=== PATIENT | female | born 1985 | race Two or more races ===

== ENCOUNTER 2022-03-07 09:55 | Outpatient (CLI) | payer OTHER ==
[~2022-03-07] VITALS: Ht 162.6 cm; Wt 72.7 kg
[~2022-03-07 09:55] MED LIST: ALBUTEROL SULFATE 2.5 MG/0.5 ML INH NEB SOLN INH PRN; EPINEPHrine INJ 1 MG/ML 1ML AMP IM PRN; diphenhydrAMINE 50MG/ML VIAL (J1200) IV PRN; methylPREDNISolone 125MG 2ML VIAL IV PRN
[2022-03-07] MEDS ORDERED: IRON SUCROSE 200 MG in NS 100 ML OVER 1 HR IV ONE (10:00)
[2022-03-07] MEDS ORDERED: ACETAMINOPHEN TAB 650MG DOSE (2X325MG) PO ONE (10:00)
[2022-03-07] MEDS ORDERED: NS 1,000 ML IV SCH (10:00)
[2022-03-07 10:09] VITALS: BP 121/56
[2022-03-07 11:42] VITALS: BP 124/56
== END 2022-03-07 12:15 | disposition home or self-care (01) ==
LOC: M INFU 09:55 → EDUNIT# 10:00 → M INFU 12:15
PROVIDERS: ATTEND Nurse Practitioner Primary Care
DX: D50.8 Other iron deficiency anemias (principal)
CPT/HCPCS: 96365; J1756

== ENCOUNTER 2022-03-13 10:07 | Outpatient (CLI) | payer OTHER ==
[~2022-03-13] VITALS: Ht 162.6 cm; Wt 72.7 kg
[2022-03-13 10:28] VITALS: BP 117/60
[2022-03-13] MEDS ORDERED: NS 1,000 ML IV SCH (10:30)
[2022-03-13] MEDS ORDERED: ACETAMINOPHEN TAB 650MG DOSE (2X325MG) PO ONE (10:30)
[2022-03-13] MEDS ORDERED: IRON SUCROSE 200 MG in NS 100 ML OVER 1 HR IV ONE (10:30)
[2022-03-13 11:30] VITALS: BP 118/62
== END 2022-03-13 11:30 | disposition home or self-care (01) ==
LOC: M INFU 10:07 → EDUNIT# 10:30 → M INFU 11:30
PROVIDERS: ATTEND Nurse Practitioner Primary Care
DX: D50.8 Other iron deficiency anemias (principal)
CPT/HCPCS: 96365; J1756

== ENCOUNTER 2022-03-20 10:34 | Outpatient (CLI) | payer OTHER ==
[~2022-03-20 10:34] MED LIST changes: +ACETAMINOPHEN TAB 650MG DOSE (2X325MG) PO ONE; +IRON SUCROSE 200 MG in NS 100 ML OVER 1 HR IV ONE; +NS 1,000 ML IV SCH
[2022-03-20 11:45] VITALS: BP 117/65
[2022-03-20 12:20] VITALS: BP 122/65
== END 2022-03-20 12:30 | disposition home or self-care (01) ==
LOC: M INFU 10:34
PROVIDERS: ATTEND Nurse Practitioner Primary Care
DX: D50.8 Other iron deficiency anemias (principal)
CPT/HCPCS: 96365; J1756

== ENCOUNTER 2022-03-27 09:21 | Outpatient (CLI) | payer OTHER ==
[~2022-03-27 09:21] MED LIST changes: -ACETAMINOPHEN TAB 650MG DOSE (2X325MG) PO ONE; -IRON SUCROSE 200 MG in NS 100 ML OVER 1 HR IV ONE; -NS 1,000 ML IV SCH
[2022-03-27 09:35] VITALS: BP 114/67
[2022-03-27] MEDS ORDERED: ACETAMINOPHEN TAB 650MG DOSE (2X325MG) PO ONE (10:00)
[2022-03-27] MEDS ORDERED: NS 1,000 ML IV SCH (10:00)
[2022-03-27] MEDS ORDERED: IRON SUCROSE 200 MG in NS 100 ML OVER 1 HR IV ONE (10:00)
[2022-03-27 11:50] VITALS: BP 118/57
== END 2022-03-27 11:50 | disposition home or self-care (01) ==
LOC: M INFU 09:21 → EDUNIT# 10:00 → M INFU 11:50
PROVIDERS: ATTEND Nurse Practitioner Primary Care
DX: D50.8 Other iron deficiency anemias (principal)
CPT/HCPCS: 96365; J1756

== ENCOUNTER 2022-04-03 10:07 | Outpatient (CLI) | payer OTHER ==
[~2022-04-03] VITALS: Ht 162.6 cm; Wt 74.0 kg
[~2022-04-03 10:07] MED LIST changes: +ACETAMINOPHEN TAB 650MG DOSE (2X325MG) PO ONE; +IRON SUCROSE 200 MG in NS 100 ML OVER 1 HR IV ONE; +NS 1,000 ML IV SCH
[2022-04-03 10:15] VITALS: BP 125/75
[2022-04-03 11:30] VITALS: BP 123/60
== END 2022-04-03 11:30 | disposition home or self-care (01) ==
LOC: M INFU 10:07
PROVIDERS: ATTEND Nurse Practitioner Primary Care
DX: D50.8 Other iron deficiency anemias (principal)
CPT/HCPCS: 96365; J1756

== ENCOUNTER 2023-03-06 12:00 | Outpatient (CLI) | payer OTHER ==
[2023-03-06 12:23] VITALS: BP 117/54
[2023-03-06] MEDS ORDERED: NS 1,000 ML IV SCH (12:30)
[2023-03-06] MEDS ORDERED: ALBUTEROL SULFATE 2.5MG/0.5ML INH NEB SOLN INH PRN (12:30)
[2023-03-06] MEDS ORDERED: methylPREDNISolone 125MG 2ML VIAL IV PRN (12:30)
[2023-03-06] MEDS ORDERED: diphenhydrAMINE 50MG/ML VIAL IV PRN (12:30)
[2023-03-06] MEDS ORDERED: EPINEPHrine INJ 1 MG/ML 1ML AMP IM PRN (12:30)
[2023-03-06] MEDS ORDERED: ACETAMINOPHEN TAB 650MG DOSE (2X325MG) PO ONE (12:30)
[2023-03-06] MEDS ORDERED: IRON SUCROSE 200 MG in NS 100 ML OVER 1 HR IV ONE (12:30)
[2023-03-06 13:10] VITALS: BP 117/58
== END 2023-03-06 13:15 | disposition home or self-care (01) ==
LOC: M INFU 12:00
PROVIDERS: ATTEND Nurse Practitioner Primary Care
DX: D50.8 Other iron deficiency anemias (principal)
CPT/HCPCS: 96365; J1756

== ENCOUNTER 2023-03-20 12:10 | Outpatient (CLI) | payer OTHER ==
[~2023-03-20] VITALS: Ht 160 cm; Wt 75.0 kg
[2023-03-20 12:10] VITALS: BP 119/75
[~2023-03-20 12:10] MED LIST changes: -ALBUTEROL SULFATE 2.5 MG/0.5 ML INH NEB SOLN INH PRN; +ALBUTEROL SULFATE 2.5MG/0.5ML INH NEB SOLN INH PRN; -diphenhydrAMINE 50MG/ML VIAL (J1200) IV PRN; +diphenhydrAMINE 50MG/ML VIAL IV PRN
[2023-03-20 14:30] VITALS: BP 115/55
== END 2023-03-20 14:35 | disposition home or self-care (01) ==
LOC: M INFU 12:10
PROVIDERS: ATTEND Nurse Practitioner Primary Care
DX: D50.8 Other iron deficiency anemias (principal)
CPT/HCPCS: 96365; J1756

== ENCOUNTER 2023-03-27 12:30 | Outpatient (CLI) | payer OTHER ==
[~2023-03-27] VITALS: Ht 160 cm; Wt 78.0 kg
[2023-03-27 12:30] VITALS: BP 113/56
[2023-03-27 13:35] VITALS: BP 107/58
== END 2023-03-27 13:40 ==
LOC: M INFU 12:30
PROVIDERS: ATTEND Nurse Practitioner Primary Care
DX: D50.8 Other iron deficiency anemias (principal)
CPT/HCPCS: 96365; J1756

== ENCOUNTER 2023-04-03 12:10 | Outpatient (CLI) | payer OTHER ==
[~2023-04-03] VITALS: Ht 160 cm; Wt 78.0 kg
[~2023-04-03 12:10] MED LIST changes: -ACETAMINOPHEN TAB 650MG DOSE (2X325MG) PO ONE; -IRON SUCROSE 200 MG in NS 100 ML OVER 1 HR IV ONE; -NS 1,000 ML IV SCH
[2023-04-03 12:15] VITALS: BP 124/59
[2023-04-03] MEDS ORDERED: ACETAMINOPHEN TAB 650MG DOSE (2X325MG) PO ONE (12:30)
[2023-04-03] MEDS ORDERED: NS 1,000 ML IV SCH (12:30)
[2023-04-03] MEDS ORDERED: IRON SUCROSE 200 MG in NS 100 ML OVER 1 HR IV ONE (12:30)
[2023-04-03 14:05] VITALS: BP 121/55
== END 2023-04-03 14:05 | disposition home or self-care (01) ==
LOC: M INFU 12:10
PROVIDERS: ATTEND Nurse Practitioner Primary Care
DX: D50.8 Other iron deficiency anemias (principal)
CPT/HCPCS: 96365; J1756

== ENCOUNTER → 2023-12-03 | Outpatient (CLI) | payer OTHER ==
[~2023-12-03] VITALS: Ht 160 cm; Wt 81.0 kg
[~2023-12-03] MED LIST changes: +ACETAMINOPHEN TAB 650MG DOSE (2X325MG) PO ONE; +FERRIC CARBOXYMALTOSE INJ 750 MG in NS 250 ML (>50kg) IV ONE; +NS 1,000 ML IV SCH; +diphenhydrAMINE 25MG CAP PO ONE
[2023-12-03 09:50] VITALS: BP 141/66; O2SAT 99
[2023-12-03 11:47] VITALS: BP 117/70; O2SAT 100
== END ==
LOC: M INFU 09:44
PROVIDERS: ATTEND Family Medicine
DX: D50.9 Iron deficiency anemia, unspecified (principal)
CPT/HCPCS: 96365; 96366; J1439

== ENCOUNTER 2023-12-15 08:10 | Outpatient (CLI) | payer OTHER ==
[~2023-12-15] VITALS: Ht 160 cm; Wt 81.0 kg
[~2023-12-15 08:10] MED LIST changes: -ACETAMINOPHEN TAB 650MG DOSE (2X325MG) PO ONE; -FERRIC CARBOXYMALTOSE INJ 750 MG in NS 250 ML (>50kg) IV ONE; -diphenhydrAMINE 25MG CAP PO ONE
[2023-12-15 08:15] VITALS: BP 140/60; O2SAT 99
[2023-12-15] MEDS: FERRIC CARBOXYMALTOSE INJ 750 MG in NS 250 ML (>50kg) IV ONE (08:20)
[2023-12-15] MEDS: ACETAMINOPHEN TAB 650MG DOSE (2X325MG) PO ONE (08:20)
[2023-12-15] MEDS: diphenhydrAMINE 25MG CAP PO ONE (08:20)
[2023-12-15 09:54] VITALS: BP 111/52; O2SAT 100
== END 2023-12-15 09:56 | disposition home or self-care (01) ==
LOC: M INFU 08:10
PROVIDERS: ATTEND Family Medicine
DX: D50.9 Iron deficiency anemia, unspecified (principal)
CPT/HCPCS: 96365; J1439